=== PATIENT | female | born 1980 | race Caucasian/White ===

== ENCOUNTER 2016-07-07 03:10 | Emergency (ER) | payer MEDICAID ==
[~2016-07-07] VITALS: Ht 165.1 cm; Wt 95.5 kg
[2016-07-07 03:18] VITALS: Ht 165.1 cm; Wt 95.5 kg
[2016-07-07] MEDS ORDERED: IBUP-1542 PO (04:36)
[2016-07-07] MEDS ORDERED: AMO500 PO (04:36)
--- NOTE | 2016-07-07 04:39 | ERD ---
ER Documentation Chief Complaint Date/Time DATE: 07/07/16 TIME: 04:37 Chief Complaint Fever sore throat for 1 day HPI 35-year-old female presents here in emergency department for complaints of sore throat and fever started today. Patient's complete of sore throat, burning pain , 8/10 scale, is worse upon swollen. Patient denies any runny nose nasal congestion or cough. Patient denies any medications she is taking at home to help with symptoms. She denies any stridor. Patient denies any shortness of breath. ROS All systems reviewed and are negative except as per history of present illness. Medications Home Meds Active Scripts Ibuprofen* (Motrin*) 600 Mg Tab, 600 MG PO Q6H Y for PAIN AND OR ELEVATED TEMP, #30 TAB Prov:INEZ CRUZ UROLOGIST MD 07/07/16 Amoxicillin* (Amoxicillin*) 500 Mg Cap, 500 MG PO TID for 10 Days, CAP Prov:INEZ CRUZ UROLOGIST MD 07/07/16 Allergies Allergies: Coded Allergies: No Known Drug Allergy (Verified Allergy, Unknown, 09/16/15) PMhx/Soc Medical and Surgical Hx: pt denies Medical Hx History of Surgery: Yes ( X3) Anesthesia Reaction: No Hx Neurological Disorder: No Hx Respiratory Disorders: No Hx Cardiac Disorders: No Hx Psychiatric Problems: No Hx Miscellaneous Medical Probl: No Hx Alcohol Use: No Hx Substance Use: No Hx Tobacco Use: No Smoking Status: Never smoker FmHx Family History: No coronary disease, No diabetes, No other Physical Exam Vitals Vital Signs Date Time Temp Pulse Resp B/P Pulse Ox O2 Delivery O2 Flow Rate FiO2 07/07/16 03:18 98.6 104 20 106/73 95 Physical Exam GENERAL: The patient is well developed and appropriate for usual state of health, in no apparent distress. HEENT: Atraumatic. Ears: Normal tympanic membrane, no erythema or bulging. No ear canal swelling. No ear discharge. Nose: normal nasal turbinates, no erythema or swelling. Normal nasal discharge. Throat: oropharynx erythematous with + tonsillar swelling with tonsillar exudates noted. No lymphadenopathy. CHEST: Clear to auscultation bilaterally. There are no rales, wheezes or rhonchi. HEART: Regular rate and rhythm. No murmurs, clicks, rubs or gallops. No S3 or S4. ABDOMEN: Soft, nontender and nondistended. Good bowel sounds. No rebound or guarding. No gross peritonitis. No gross organomegaly or masses. No Ramsey sign or McBurney point tenderness. BACK: No midline or flank tenderness. EXTREMITIES: Equal pulses bilaterally. There is no peripheral clubbing, cyanosis or edema. No focal swelling or erythema. Full range of motion. Grossly neurovascularly intact. NEURO: Alert and oriented. Cranial nerves 2-12 intact. Motor strength in all 4 extremities with 5/5 strength. Sensation grossly intact. Normal speech and gait. SKIN: There is no apparent rash or petechia. The skin is warm and dry. HEMATOLOGIC AND LYMPHATIC: There is no evidence of excessive bruising or lymphedema. No gross cervical, axillary, or inguinal lymphadenopathy. Procedures/MDM Medical decision making: Patient's symptoms most likely is consistent with acute bacterial pharyngitis, possible strep throat. No symptoms of peritonsillar abscess at this time. Her symptoms of sepsis at this time. No oral airway obstruction noted. Patient was given for amoxicillin, ibuprofen, is advised to do salt water gargles, rest, drink a lot of water. Patient was advised to return to emergency department for any worsening symptoms Departure Diagnosis: Primary Impression: Acute bacterial pharyngitis Condition: Stable Patient Instructions: Pharyngitis, Strep (Presumed) INEZ CRUZ NP Jul 07, 2016 04:39
[2016-07-07 04:53] VITALS: BP 131/80; PULSE 89; RESP 20; TEMP 98.6
== END 2016-07-07 04:53 | disposition home or self-care (01) ==
LOC: FTE 03:10
DX: J02.8 Acute pharyngitis due to other specified organisms (principal); B96.89 Other specified bacterial agents as the cause of diseases classified elsewhere
CPT/HCPCS: 99283

== ENCOUNTER 2017-03-13 12:05 | Emergency (ER) | payer MEDICAID ==
[~2017-03-13] VITALS: Ht 162.6 cm; Wt 92.0 kg
[~2017-03-13 12:05] MED LIST: AMOX500C2 PO; IBUP-1542 PO
[2017-03-13 12:39] VITALS: Ht 162.6 cm; Wt 92.0 kg
[2017-03-13 14:31] LABS: URINE BLOOD (Dip) POC Trace-intact (NEGATIVE)
--- NOTE | 2017-03-13 14:59 | ERD ---
ER Documentation Chief Complaint Date/Time DATE: 03/13/17 TIME: 14:57 Chief Complaint CAME IN VIA INTAKE DUE TO PAINFUL URINATION AND NAUSEA HPI 36-year-old male complains of painful urination for the last 5 days. She denies fevers, vomiting, flank pain. She has mild suprapubic pain. She has mild nausea. She denies . ROS All systems reviewed and are negative except as per history of present illness. Medications Home Meds Active Scripts Ibuprofen* (Motrin*) 600 Mg Tab, 600 MG PO Q6H Y for PAIN AND OR ELEVATED TEMP, #30 TAB Prov:INEZ CRUZ NP 07/07/16 Amoxicillin* (Amoxicillin*) 500 Mg Cap, 500 MG PO TID for 10 Days, CAP Prov:INEZ CRUZ PHONE ENGINEER 07/07/16 Allergies Allergies: Coded Allergies: No Known Drug Allergy (Verified Allergy, Unknown, 03/13/17) PMhx/Soc History of Surgery: Yes ( X4) Anesthesia Reaction: No Hx Neurological Disorder: No Hx Respiratory Disorders: No Hx Cardiac Disorders: No Hx Psychiatric Problems: No Hx Miscellaneous Medical Probl: No Hx Alcohol Use: No Hx Substance Use: No Hx Tobacco Use: No Smoking Status: Never smoker Physical Exam Vitals Vital Signs Date Time Temp Pulse Resp B/P Pulse Ox O2 Delivery O2 Flow Rate FiO2 03/13/17 12:39 97.9 83 18 129/85 99 Physical Exam Const: [], [id number]. Head: Atraumatic Eyes: Normal Conjunctiva ENT: Normal External Ears, Nose and Mouth. Neck: Full range of motion..~ No meningismus. Resp: Clear to auscultation bilaterally Cardio: Regular rate and rhythm, no murmurs Abd: Soft, mild suprapubic tenderness. No tenderness at McBurney's point no Ramsey sign., non distended. Normal bowel sounds Skin: No petechiae or rashes Back: No midline or flank tenderness Ext: No cyanosis, or edema Neur: Awake and alert Psych: Normal Mood and Affect Results 24 hrs Laboratory Tests Test 03/13/17 14:39 Bedside Urine pH (LAB) 6.0 Bedside Urine Protein (LAB) 2+ Bedside Urine Glucose (UA) Negative Bedside Urine Ketones (LAB) Negative Bedside Urine Blood Trace-intact Bedside Urine Nitrite (LAB) Negative Bedside Urine Leukocyte Esterase (L 3+ Procedures/MDM And shows positive leukocytes and hemoglobin. Patient was given Keflex, Pyridium and Tylenol here and will be treated with Keflex and Pyridium instructions for fluids at home and return precautions and primary care follow- up. The patient was stable with no new complaints during the ER course. Clinically, there is no current evidence to suggest meningitis, sepsis, acute abdomen, pneumonia, acute coronary syndrome, pulmonary embolism, or any other emergent condition appearing to require further evaluation or hospitalization. The patient should certainly return for any new or worsening symptoms per the aftercare instructions. They should otherwise follow-up with her primary care doctor for reevaluation this week. Departure Diagnosis: Primary Impression: UTI (urinary tract infection) Condition: Stable SANDRA VAUGHN MD Mar 13, 2017 14:59
[2017-03-13] MEDS ORDERED: CEPHALEXIN 500 MG CAP PO ONE (15:00)
[2017-03-13] MEDS ORDERED: IBUP-1542 PO (15:00)
[2017-03-13] MEDS ORDERED: PHENAZOPYRIDINE 100 MG TAB PO ONE (15:00)
[2017-03-13] MEDS ORDERED: PHEN-538 PO (15:00)
[2017-03-13] MEDS ORDERED: CEPH-443 PO (15:00)
[2017-03-13] MEDS ORDERED: ACETAMINOPHEN 325 MG TAB PO ONE (15:00)
== END 2017-03-13 15:46 | disposition home or self-care (01) ==
LOC: FTE 12:05
DX: N39.0 Urinary tract infection, site not specified (principal)
CPT/HCPCS: 81003; Z7502; Z7610; 99283

== ENCOUNTER → 2018-12-07 | Emergency (ER) | payer MEDICAID ==
[~2018-12-07] VITALS: Ht 160 cm; Wt 91.4 kg
[~2018-12-07] MED LIST changes: +CEPH-443 PO; +CIPR500T4 PO; +PHEN-538 PO
[2018-12-07 07:23] VITALS: BP 141/76; PULSE 67; RESP 18; Ht 160 cm; Wt 91.4 kg
--- NOTE | 2018-12-07 08:19 | ERD ---
ER Documentation Chief Complaint Chief Complaint painful urination since monday HPI 38-year-old female presenting with dysuria x5 days. Patient states the pain is come and go over the last 5 days but is progressively worsened. She noted some hematuria when she wiped. She denies any fevers. Took some medication from [facility] but does not recall the name of it. Denies medical problems. NKDA. Surgical history . Social history denies ROS All systems reviewed and are negative except as per history of present illness. Medications Home Meds Active Scripts Ciprofloxacin Hcl* (Ciprofloxacin Hcl*) 500 Mg Tablet, 500 MG PO BID for 7 Days, TAB Prov:DREW SAUCEDA PA-C 12/07/18 Ibuprofen* (Motrin*) 600 Mg Tab, 600 MG PO Q6, #15 TAB Prov:SANDRA VAUGHN MD 03/13/17 Phenazopyridine Hcl* (Pyridium*) 200 Mg Tab, 200 MG PO TID PRN for URINARY PAIN, #6 TAB Prov:SANDRA VAUGHN MD 03/13/17 Cephalexin* (Keflex*) 500 Mg Capsule, 500 MG PO QID for 5 Days, CAP Prov:SANDRA VAUGHN MD 03/13/17 Ibuprofen* (Motrin*) 600 Mg Tab, 600 MG PO Q6H PRN for PAIN AND OR ELEVATED TEMP, #30 TAB Prov:INEZ CRUZ NP 07/07/16 Amoxicillin* (Amoxicillin*) 500 Mg Cap, 500 MG PO TID for 10 Days, CAP Prov:INEZ CRUZ NP 07/07/16 Allergies Allergies: Coded Allergies: No Known Drug Allergy (Verified Allergy, Unknown, 03/13/17) PMhx/Soc History of Surgery: Yes ( X4) Anesthesia Reaction: No Hx Neurological Disorder: No Hx Respiratory Disorders: No Hx Cardiac Disorders: No Hx Psychiatric Problems: No Hx Miscellaneous Medical Probl: No Hx Alcohol Use: No Hx Substance Use: No Hx Tobacco Use: No Smoking Status: Never smoker FmHx Family History: No diabetes, No coronary disease, No other Physical Exam Vitals Vital Signs Date Temp Pulse Resp B/P (MAP) Pulse Ox O2 O2 Flow FiO2 Time Delivery Rate 12/07/18 97.8 67 18 141/76 98 07:23 (97) Physical Exam GENERAL: The patient is well-appearing, well-nourished, in no acute distress CHEST: Clear to auscultation bilaterally. There are no rales, wheezes or rhonchi. HEART: Regular rate and rhythm. No murmurs, clicks, rubs or gallops. ABDOMEN:Soft, nontender and nondistended. Good bowel sounds. No rebound or g uarding. No gross peritonitis. No gross organomegaly or masses. BACK: No midline or flank tenderness. Results 24 hrs Laboratory Tests Test 12/07/18 07:45 12/07/18 07:47 Bedside Urine pH (LAB) 7.0 Bedside Urine Protein (LAB) 2+ Bedside Urine Glucose (UA) Negative Bedside Urine Ketones (LAB) Negative Bedside Urine Blood 3+ Bedside Urine Nitrite (LAB) Negative Bedside Urine Leukocyte Esterase (L 2+ POC Beta HCG, Qualitative NEGATIVE Procedures/MDM ER course: Urine positive for infection. MDM: 38-year-old female presenting with dysuria. Patient's findings are consistent with urinary tract infection. Patient will be discharged with antibiotics. I have low suspicion for pyelonephritis. I have low suspicion for acute abdominal emergency. I have low suspicion for pelvic abnormality. Patient is discharged with strict ER precautions and told to follow-up with primary care within 1 to 2 days for close evaluation. All questions answered at discharge Departure Diagnosis: Primary Impression: UTI (urinary tract infection) Condition: Stable Patient Instructions: Understanding Urinary Tract Infections (UTIs) Referrals: [facility] YOU HAVE RECEIVED A MEDICAL SCREENING EXAM AND THE RESULTS INDICATE THAT YOU DO NOT HAVE A CONDITION THAT REQUIRES URGENT TREATMENT IN THE EMERGENCY DEPARTMENT. FURTHER EVALUATION AND TREATMENT OF YOUR CONDITION CAN WAIT UNTIL YOU ARE SEEN IN YOUR DOCTORS OFFICE WITHIN THE NEXT 1-2 DAYS. IT IS YOUR RESPONSIBILITY TO MAKE AN APPOINTMENT FOR FOLOW-UP CARE. IF YOU HAVE A PRIMARY DOCTOR --you should call your primary doctor and schedule an appointment IF YOU DO NOT HAVE A PRIMARY DOCTOR YOU CAN CALL OUR PHYSICIAN REFERRAL HOTLINE AT IF YOU CAN NOT AFFORD TO SEE A PHYSICIAN YOU CAN CHOSE FROM THE FOLLOWING [facility] [address] [facility]. [facility] [address] [facility] [address] [facility]. [facility] [address] [facility]. [facility] [address] [facility]. [facility]. [address] Additional Instructions: FOLLOW UP WITH YOUR PRIMARY CARE PHYSICIAN TOMORROW.Return to this facility if you are not improving as expected. DREW SAUCEDA PA-C Dec 07, 2018 08:19
== END | disposition home or self-care (01) ==
LOC: FTE 07:20
DX: N39.0 Urinary tract infection, site not specified (principal)
CPT/HCPCS: 81003; 81025; 99283

== ENCOUNTER 2019-04-05 15:35 | Emergency (ER) | payer MEDICAID ==
[~2019-04-05] VITALS: Ht 160 cm; Wt 90.0 kg
[2019-04-05 15:38] VITALS: BP 137/87; PULSE 83; RESP 18; Ht 160 cm; Wt 90.0 kg
== END 2019-04-05 17:08 | disposition home or self-care (01) ==
LOC: FTE 15:35
DX: R04.0 Epistaxis (principal)
CPT/HCPCS: 36415; 85025; Z7502; 99283